=== PATIENT | male | born 1950 | race Hispanic/Latino ===

== ENCOUNTER 2018-06-03 14:36 | Inpatient (IN) | payer MEDICAID, SELFPAY ==
[~2018-06-03 14:36] MED LIST: Heparin 10,000 UNITS/ 10 ML VIAL ONE; Iopamidol 370 76% 100 ML VIAL ONE; Iopamidol 370 76% 50 ML VIAL FS ONE
[2018-06-03 15:07] LABS: #Monocytes 0.3 thou/uL (0.11-0.59); #Neutrophils 11.8 thou/uL (1.40-6.50); %Basophils 0.1 % (0.0-1.0); %Eosinophils 0.2 % (0.0-10.0); %Lymphocytes 7.6 % (21.0-51.0); %Monocytes 2.1 % (0.0-10.0); Hemoglobin 16.6 g/dL (14.0-18.0); Mean Corpuscular HGB CONC 34.8 g/dL (32.0-36.0); Mean Corpuscular Hemoglobin 31.6 pg (27.0-31.0); Mean Corpuscular Volume 90.8 fL (78.0-98.0); Mean Platelet Volume 8.1 fL (7.4-10.4); Platelet Count 228 thou/uL (130-400); RBC Distribution Width 11.3 % (11.5-14.5); Red Blood Cell (RBC) Count 5.26 mill/uL (4.70-6.10); White Blood Cell (WBC) Count 13.1 thou/uL (4.8-10.8)
[2018-06-03 15:30] LABS: ALT (SGPT) 24 U/L (8-55); AST (SGOT) 85 U/L (5-34); Albumin 4.7 g/dL (3.4-4.8); Alkaline Phosphatase 120 U/L (40-150); Anion Gap 19 mmol/L (10-20); BUN (Urea Nitrogen) 10 mg/dL (8.4-25.7); Bilirubin, Total 0.6 mg/dL (0.2-1.2); CK (CPK) 1361 U/L (30-200); Calc. Creatinine Clearance 0 mL/min (70-130); Calcium 9.8 mg/dL (7.8-10.44); Carbon Dioxide 22 mmol/L (23-31); Chloride 97 mmol/L (98-107); Estimated GFR-MDRD 77; Globulin 3.4 g/dL (2.4-3.5); Glucose 359 mg/dL (80-115); Lipase Less than 4 U/L (8-78); Potassium 4.2 mmol/L (3.5-5.1); Protein, Total 8.1 g/dL (5.8-8.1); Sodium 134 mmol/L (136-145)
[2018-06-03] MEDS ORDERED: Nitroglycerin 2% Ointment 1 INCH/1 GM Packet ONE (15:30)
[2018-06-03] MEDS ORDERED: Heparin 1,000 UNITS/ML VIAL ONE (15:35)
[2018-06-03 15:39] LABS: PTT 25.8 SEC (22.9-36.1); Prothrombin Time 13.2 SEC (12.0-14.7)
[2018-06-03 15:39] LABS: CKMB 84.8 ng/mL (0-6.6); Troponin I 14.239 ng/mL (< 0.028)
[2018-06-03] MEDS ORDERED: Lidocaine 1% (PF) 30 ML VIAL ONE (15:44)
--- NOTE | 2018-06-03 16:07 | RAD ---
UPRIGHT PORTABLE CHEST 1 VIEW: Date: 06/03/18 HISTORY: 67-year-old male with history of chest pain. FINDINGS: Heart size is within normal limits. The lungs are clear. Mild biapical pleural thickening. IMPRESSION: No acute intrathoracic disease. POS: C
[2018-06-03] MEDS ORDERED: Heparin 10,000 UNITS/1 ML VIAL ONE (16:10)
[2018-06-03] MEDS ORDERED: Atropine Sulfate 1 mg/1 ml Vial ONE (16:21)
[2018-06-03] MEDS ORDERED: DOPamine 400 MG/D5W 250 ML 0 ML ONE (16:22)
[2018-06-03] MEDS ORDERED: Nitroglycerin 100MG/250ML BOT 250 ML ONE (17:11)
[2018-06-03] MEDS ORDERED: Adenosine 6 MG/2 ML VIAL ONE (17:11)
[2018-06-03] MEDS ORDERED: TICAGRELOR 90 MG TABLET PO SCH (17:46)
[2018-06-03] MEDS ORDERED: Nitroglycerin 0.4 MG TAB (25 Tab Bottle) SL PRN (17:46)
[2018-06-03] MEDS ORDERED: Morphine 4 MG/ML Carpuject SLOW IVP PRN (17:46)
[2018-06-03] MEDS ORDERED: cloNIDine 0.1 MG TAB PO PRN (17:46)
[2018-06-03] MEDS ORDERED: Acetaminophen/Codeine 30-300mg Tablet PO PRN ×2 (17:46)
[2018-06-03] MEDS ORDERED: Zolpidem Tartrate 5 MG TAB PO PRN (17:46)
[2018-06-03] MEDS ORDERED: Mag-Al 1200 mg/1200 mg/30 ML UDCUP PO PRN (17:46)
[2018-06-03] MEDS ORDERED: Milk Of Magnesia 30 ML UDCUP PO PRN (17:46)
[2018-06-03] MEDS ORDERED: Heparin 25,000 units/D5W 500 ML IV SCH (18:00)
[2018-06-03] MEDS ORDERED: Morphine 4 MG/ML VIAL ONE (18:08)
--- NOTE | 2018-06-03 19:59 | HP ---
DATE OF ADMISSION: 06/03/2018 The patient is at this time being seen in the emergency room. HISTORY OF PRESENT ILLNESS: Very pleasant 67-year-old gentleman, who has had no previous cardiac his tory [facility] after he has been experiencing chest pain pretty much all morning. It started this a.m., uncertain of what time. He was sent over here after an EKG showe d what appeared to be an acute anterior myocardial infarction. He continues to have chest pain, whic h he rates a 7/10. EKG still shows ST-segment elevation in the anterior leads. It appears he most l ikely have Q-waves, very small R-wave in a couple of leads, but appears that he may have suffered a m yocardial infarction earlier today and this is just evolving changes, but the patient continues to victor ve chest discomfort. PAST MEDICAL HISTORY: Significant for some type of neck cancer. He has had bilateral neck dissectio ns. He had radiation apparently in 01/2014 and actually has some menon on the chest, which appeared to be radiation menon for the markers. Otherwise, he has had no previous history that we are aware o f. SOCIAL HISTORY: He has smoked a pack a day for about 20 years. He is . He has no alcohol us e. He works doing part-time construction. FAMILY HISTORY: Noncontributory. ALLERGIES: None. MEDICATIONS: None prior to admission. He has been given aspirin and heparin. REVIEW OF SYSTEMS: According to what we can discern from the patient who speaks only Thai, that h is review of systems is unremarkable except what was noted in the history of present illness. PHYSICAL EXAMINATION: GENERAL: Reveals a well-developed, well-nourished, small-statured gentleman. VITAL SIGNS: Blood pressure 122/83, heart rate 65 and shows a sinus rhythm, respiratory rate about 1 8. HEENT: Shows the head to be normocephalic, atraumatic. He has previous surgical incisions and well healing on both necks after what appeared to be a neck dissection. Carotid pulses, I did not hear an y bruits. CHEST: Clear to auscultation without any rales, rhonchi, or wheezing. CARDIOVASCULAR: Reveals a regular rate and rhythm at this time with S1 and S2. No S3, S4 was noted. There were no significant murmurs, heaves, thrills, bruits, or rubs. ABDOMEN: Soft, flat, nontender. Positive bowel sounds are present. EXTREMITIES: Showed no clubbing, cyanosis, or edema. NEUROLOGIC: The patient appears to be fully intact. Has normal strength and tone. SKIN: Warm and dry. NEUROLOGIC: He appears to be unremarkable. EKG shows acute anterior myocardial infarction with evolving changes of what appears to be an anterio r CA. LABORATORY DATA: Hemoglobin is stable, but we do not have his chemistries or troponins back as of th is time, at the time of this dictation. IMPRESSION: Acute anterior myocardial infarction. The patient will be taken to the cardiac lab courier urgently. I have explained the procedure and the risks to him to include bleeding; infection; possi bility of myocardial infarction, CVA, renal insufficiency, allergic contrast reaction; and the possib ility of . As soon as the room is available, the patient will be taken to cardiac lab courier for evaluation to determine if he has severe coronary artery disease and if any additional health can be given to this patient such as intervention.
[2018-06-03 20:51] VITALS: BMI 23.3
[2018-06-03] MEDS: Atorvastatin Calcium 40 MG TAB PO SCH (20:56)
[2018-06-03] MEDS: Carvedilol 3.125 MG TAB PO SCH (20:56)
[2018-06-03] MEDS: TICAGRELOR 90 MG TABLET PO SCH (20:56)
[2018-06-03 21:53] LABS: Troponin I 142.564 ng/mL (< 0.028)
[2018-06-04 03:29] LABS: #Lymphocytes 0.8 thou/uL (1.20-3.40); #Monocytes 0.8 thou/uL (0.11-0.59); #Neutrophils 9.5 thou/uL (1.40-6.50); %Basophils 0.2 % (0.0-1.0); %Eosinophils 0.3 % (0.0-10.0); %Lymphocytes 7.3 % (21.0-51.0); %Monocytes 7.1 % (0.0-10.0); %Neutrophils 85.1 % (42.0-75.0); Hemoglobin 15.7 g/dL (14.0-18.0); Mean Corpuscular HGB CONC 35.7 g/dL (32.0-36.0); Mean Corpuscular Hemoglobin 32.6 pg (27.0-31.0); Mean Corpuscular Volume 91.4 fL (78.0-98.0); Mean Platelet Volume 7.9 fL (7.4-10.4); Platelet Count 210 thou/uL (130-400); RBC Distribution Width 11.3 % (11.5-14.5); Red Blood Cell (RBC) Count 4.82 mill/uL (4.70-6.10); White Blood Cell (WBC) Count 11.1 thou/uL (4.8-10.8)
[2018-06-04 03:51] LABS: ALT (SGPT) 38 U/L (8-55); AST (SGOT) 209 U/L (5-34); Alkaline Phosphatase 91 U/L (40-150); Anion Gap 16 mmol/L (10-20); BUN (Urea Nitrogen) 11 mg/dL (8.4-25.7); Bilirubin, Total 0.8 mg/dL (0.2-1.2); Calc. Creatinine Clearance 86 mL/min (70-130); Calcium 8.9 mg/dL (7.8-10.44); Carbon Dioxide 22 mmol/L (23-31); Chloride 99 mmol/L (98-107); Estimated GFR-MDRD Greater than 90; Globulin 2.9 g/dL (2.4-3.5); Glucose 315 mg/dL (80-115); Potassium 3.6 mmol/L (3.5-5.1); Protein, Total 6.9 g/dL (5.8-8.1); Sodium 133 mmol/L (136-145)
[2018-06-04] MEDS ORDERED: Heparin 10,000 UNITS/ 10 ML VIAL SLOW IVP SCH (04:00)
[2018-06-04] MEDS ORDERED: Dextrose 5% in Water 1,000 ML IV PRN (07:49)
[2018-06-04] MEDS ORDERED: Dextrose 50% Abboject 50 ML SYRINGE SLOW IVP PRN (07:49)
[2018-06-04] MEDS ORDERED: Insulin Regular 300 UNITS/3 ML VIAL SC PRN (07:49)
[2018-06-04 08:48] LABS: Hemoglobin A1c 12.5 % (4.0-6.0)
[2018-06-04] MEDS ORDERED: Insulin Glargine 20 UNITS in Pre-Filled Syringe 1 EACH SC SCH (09:00)
[2018-06-04] MEDS ORDERED: Prevnar 13-Val Conj/PF 0.5 ML SYRINGE IM ONE (09:00)
--- NOTE | 2018-06-04 09:50 | CON ---
DATE OF CONSULTATION: 06/04/2018 REASON FOR CONSULTATION: ICU protocol. HISTORY OF PRESENT ILLNESS: This is a 67-year-old male who presented yesterday with chest pain. He was found to have a large anterior SC. He was taken to the [facility] and underwent stenting. He is n ow chest pain free. He is in the ICU. He has a sheath in place. He has been noted to be severely h yperglycemic. He tells me that he is diabetic, but has not been taking medications for that. PAST MEDICAL HISTORY: 1. Head and neck cancer. 2. Diabetes mellitus. PAST SURGICAL HISTORY: He has had some kind of radical neck dissection. SOCIAL HISTORY: He smoked a pack a day for 20 years. No longer smokes. He is from [place]. He does part-time construction here. FAMILY MEDICAL HISTORY: Unremarkable. ALLERGIES: None. MEDICATIONS PRIOR TO ADMISSION: None. REVIEW OF SYSTEMS: Twelve point review of systems otherwise negative. PHYSICAL EXAMINATION: VITAL SIGNS: Temperature 98.2, pulse 93, blood pressure 116/77, O2 sat 95%. HEENT: Pupils react. Sclerae anicteric. Oropharynx clear. NECK: Severe muscle wasting. He has no carotid bruits, no JVD. LUNGS: Clear without wheezing or rhonchi. CARDIAC: S1, S2 regular without audible murmur. ABDOMEN: Soft, nontender. Nonpalpable liver or spleen. EXTREMITIES: No clubbing, cyanosis, or edema. He has decreased pulses in his feet, but no discolora tion. LABORATORY DATA: Sodium 133, potassium 3.6, chloride 99, CO2 of 22, BUN 11, creatinine 0.7, glucose 315, AST 209, ALT 38. Troponins 85, but was initially 142, albumin 4.0, white blood cell count 11.1, hematocrit 44, platelet count 210. X-RAY FINDINGS: His chest x-ray shows slightly increased heart size, no obvious mass, effusion or in filtrate. ASSESSMENT: 1. Acute myocardial infarction. 2. Diabetes out of control. PLAN: 1. Check hemoglobin A1c. 2. Add long-acting insulin along with sliding scale. 3. He will likely need hospitalist involvement to develop a treatment for his hyperglycemia prior to discharge.
[2018-06-04] MEDS: Lisinopril 2.5 MG TAB PO SCH (11:15)
[2018-06-04] MEDS: Famotidine 20 MG TAB PO SCH ×2 (11:16→22:15)
[2018-06-04] MEDS: Insulin Regular 300 UNITS/3 ML VIAL SC PRN ×2 (11:49→16:47)
[2018-06-04] MEDS: TICAGRELOR 90 MG TABLET PO SCH ×2 (11:56→22:16)
--- NOTE | 2018-06-04 12:23 | PDOC.CTH ---
Cardiology Progress Note - Subjective Pt. seen and eval. s/p large anterkior HI yesterday with ptca/stent to the occluded LAD. He denies chest pain. No symptoms of CHF. BP stable. - Objective Vital Signs Temp Pulse BP Pulse Ox 06/04/18 11:15 82 123/73 06/04/18 08:00 98.3 F 97 Weight 136 lb 0.403 oz 06/03/18 06/04/18 06/05/18 06:59 06:59 06:59 Intake Total 463 360 Output Total 1025 350 Balance -562 10 - Physical Examination General/Neuro: alert & oriented x3 Neck: other: (bilat. neck dissections in the past. Well healed but difficult to palpate carotid pulse but they are present bilat.) Lungs: CTA Heart: RRR Abdomen: no HSM, NT/ND - Telemetry Telemetry Rhythm: NSR - Labs Result Diagrams: 06/04/18 03:13 06/04/18 03:13 Troponin/CKMB CK-MB (CK-2) 84.8 ng/mL (0-6.6) H* 06/03/18 14:54 Troponin I 85.630 ng/mL (< 0.028) H* 06/04/18 03:13 - Assessment/Plan 1. CAD.s/p large anterior HI. severe 3 vessel dz. S/P ptca/ stent to the LAD. He will need further PTCA/stents to the RCA and L-Circ. prior to d/c. Plan for early next week. 2. DM. Pt. stopped taking his medications.Presently on insulin.Will consult hospital service to assist with management. 3. Dyslipidemia. Check FLP. 4. Hx. of tobacco abuse. He did smoke in the past but stopped 5 years ago after his neck cancer. Review of Systems - Review of Systems Constitutional: reports: no symptoms reported EENTM: reports: no symptoms reported Respiratory: reports: no symptoms reported Cardiac (ROS): reports: no symptoms reported ABD/GI: reports: no symptoms reported : reports: no symptoms reported Musculoskeletal: reports: no symptoms reported Neurological: reports: no symptoms reported
[2018-06-04] MEDS: Carvedilol 3.125 MG TAB PO SCH ×2 (13:04→22:15)
[2018-06-04] MEDS: Atorvastatin Calcium 40 MG TAB PO SCH (22:15)
[2018-06-04] MEDS: Insulin Glargine 20 UNITS in Pre-Filled Syringe 1 EACH SC SCH (22:15)
--- NOTE | 2018-06-05 02:12 | CON ---
DATE OF CONSULTATION: 06/04/2018 CONSULTING PHYSICIAN: Dr. Saenz. REASON FOR CONSULTATION: Medical management. HISTORY OF PRESENT ILLNESS: This patient is a 67-year-old male who presented to the hospital after a bout 12 hours of significant chest pain. The patient had evidence of anterior ischemia on his EKG an d was diagnosed with STEMI. He was taken to the color laboratory technician where he was found to have multivessel dise ase with large anterior occlusion. Patient had angioplasty and drug-eluting stent placed. He has pe rsistent RCA disease with 95% and left circulatory 95%. His ejection fraction was 40%-45%. Subseque ntly, the patient's troponin has risen to a peak of 142.5. Subsequently, patient has been pain free while undergoing this. The patient has diabetes mellitus and has poor control. The patient has not been taking any medications for diabetes prior to his admission. He has not really paid any attentio n to it. Overall, clinically his hemoglobin A1c was 12.5 indicating very poor control. He is curren tly on aggressive sliding scale insulin and continues to have blood sugars over 250. PAST MEDICAL HISTORY: Notable for the above-mentioned diabetes. Apparently, the patient has some hi story of anxiety for which he takes Klonopin as well. He also has a history of some type of head and neck cancer requiring non-radical neck dissection with subsequent radiation therapy. FAMILY HISTORY: Notable for mother with diabetes and a sister with diabetes who acquired bilateral l ower extremity amputations. SOCIAL HISTORY: Patient was a smoker, but quit smoking and he was diagnosed with pelvic cancer. ALLERGIES: None. MEDICATION: Patient was on p.r.n. Klonopin. PHYSICAL EXAMINATION: VITAL SIGNS: Temperature is 98.7, pulse 82, respirations 16, O2 sat 98% on 2 liters nasal cannula, B P 119/76. GENERAL APPEARANCE: Age appropriate male in no distress. He is awake, alert, oriented, pleasant and cooperative. HEENT: PERRL. No OP lesions. He has surgical changes in the neck which are well healed. HEART: Regular rate and rhythm without murmurs, gallops or rubs. LUNGS: Clear to auscultation bilaterally with good chest wall expansion and good air exchange. ABDOMEN: Soft, nontender, nondistended, positive bowel sounds. No hepatosplenomegaly. EXTREMITIES: Warm and dry without edema. LABORATORY DATA: White count 11.1, hemoglobin 15.7, platelets 210. Sodium 133, potassium 3.6, chlor janay 99, CO2 of 22, BUN 11, creatinine 0.74, glucose 315, 279, 277. A1c 12.5. Most recent troponin d own to 85.6. IMPRESSION AND PLAN: 1. Severe coronary artery disease with multi-vessel involvement. The patient has angioplasty and st ent to his LAD and has 2 vessels remaining that will need to be addressed prior to his discharge. Cu rrently, the patient remains on Coreg, Zestril, Lipitor, aspirin and Brilinta. Refer to Cardiology. 2. Diabetes mellitus. Patient will need to have some additional long-acting insulin and continue wi th the aggressive sliding scale. We will add higher morning dose of insulin Glargine. This patient will likely benefit from an oral regimen given the fact he is highly mobile and unsettled and frequen tly changes where he lives between and [place]. He may be a good candidate for metformin; however, will need to get past all of the cardiac interventions with contrast before starting that. We will continue to follow.
[2018-06-05 04:52] LABS: Anion Gap 11 mmol/L (10-20); BUN (Urea Nitrogen) 14 mg/dL (8.4-25.7); Calc. Creatinine Clearance 83 mL/min (70-130); Calcium 8.8 mg/dL (7.8-10.44); Carbon Dioxide 26 mmol/L (23-31); Chloride 99 mmol/L (98-107); Estimated GFR-MDRD Greater than 90; Glucose 186 mg/dL (80-115); Sodium 133 mmol/L (136-145)
[2018-06-05] MEDS: Insulin Regular 300 UNITS/3 ML VIAL SC PRN ×2 (06:06→12:46)
[2018-06-05] MEDS ORDERED: Potassium Chloride 20 MEQ TAB PO SCH (07:45)
[2018-06-05] MEDS ORDERED: Insulin Glargine 30 UNITS in Pre-Filled Syringe 1 EACH SC SCH (09:00)
[2018-06-05] MEDS: Carvedilol 3.125 MG TAB PO SCH ×2 (09:11→20:57)
[2018-06-05] MEDS: Famotidine 20 MG TAB PO SCH ×2 (09:11→20:57)
[2018-06-05] MEDS: Lisinopril 2.5 MG TAB PO SCH (09:11)
--- NOTE | 2018-06-05 09:15 | PRG ---
DATE OF SERVICE: 06/05/2018 SUBJECTIVE: The patient is feeling well, has no complaints. OBJECTIVE: VITAL SIGNS: Temperature 98.2, pulse 83, respirations 12, O2 sat 92%, blood pressure 94/70. HEENT: Unremarkable. NECK: No JVD. CHEST: Clear without wheezing. CARDIAC: S1 and S2 regular. ABDOMEN: Soft. EXTREMITIES: No edema. LABORATORY DATA: Sodium 133, potassium 3.0, chloride 99, CO2 of 26, BUN 14, creatinine 0.7, glucose 186. ASSESSMENT: 1. Status post myocardial infarction. 2. Diabetes out of control -- blood sugars better since beginning Lantus yesterday. PLAN: The patient can be transferred out to the telemetry floor. No further pulmonary recommendatio ns. We will sign off. Please recall if further assistance needed.
[2018-06-05] MEDS: TICAGRELOR 90 MG TABLET PO SCH ×2 (09:17→20:57)
--- NOTE | 2018-06-05 12:16 | PDOC.CTH ---
<Magali Irizarry - Last Filed: 06/05/18 12:14> Cardiology Progress Note - Subjective The pt seen and examined. No overnight events. No cardiac complaints. - Objective Vital Signs Temp Pulse Resp BP BP Pulse Ox 06/05/18 11:52 96.8 F L 80 19 102/74 95 06/05/18 09:11 93 106/75 06/05/18 08:00 92 L 06/05/18 07:30 98.2 F 83 12 94/70 92 L 06/05/18 04:00 99.1 F 82 16 100/61 94 L Weight 137 lb 12.8 oz 06/04/18 06/05/18 06/06/18 06:59 06:59 06:59 Intake Total 463 1920 Output Total 1025 1225 Balance -562 695 - Physical Examination General/Neuro: alert & oriented x3 Neck: no JVD present Lungs: CTA Heart: RRR Abdomen: soft Extremities: other: (No edema) - Telemetry Telemetry Rhythm: SR - Labs Result Diagrams: 06/04/18 03:13 06/05/18 03:34 Troponin/CKMB CK-MB (CK-2) 84.8 ng/mL (0-6.6) H* 06/03/18 14:54 Troponin I 85.630 ng/mL (< 0.028) H* 06/04/18 03:13 - Assessment/Plan 1. CAD with s/p large anterior PR, severe 3 vessel dz - S/P ptca/stent to the LAD on 06/04/18. On Coreg 3.125mg BID, Lisinopril 2.5mg qd, ASA 81mg qd, and Brilinta 90mg BID. Need further PTCA/stents to the RCA and L-Circ. prior to d/ c. Plan for early next week. 2. DM - HgbA1c on 06/04/18 was > 12. Non-complaint. Presently on insulin, which managed by PCP 3. Dyslipidemia - on Lipitor. 4. Hx. of tobacco abuse, quit in 2013 - Smoking cessation education given to the pt. MAR reviewed * Plan for further PTCA/stents to the RCA and L-Circ possible early next week. Cont. Brilinta Review of Systems - Review of Systems Constitutional: reports: no symptoms reported EENTM: reports: no symptoms reported Respiratory: reports: no symptoms reported Cardiac (ROS): reports: no symptoms reported ABD/GI: reports: no symptoms reported : reports: no symptoms reported Musculoskeletal: reports: no symptoms reported Skin: reports: no symptoms reported Neurological: reports: no symptoms reported <Leigh Ann Saenzan - Last Filed: 06/05/18 16:39> Cardiology Progress Note - Objective Vital Signs Temp Pulse Pulse Pulse Resp BP BP 06/05/18 15:51 97.8 F 81 18 06/05/18 11:52 96.8 F L 80 19 06/05/18 10:42 89 91 102/66 06/05/18 09:11 93 106/75 06/05/18 08:00 06/05/18 07:30 98.2 F 83 12 BP BP Pulse Ox 06/05/18 15:51 106/77 95 06/05/18 11:52 102/74 95 06/05/18 10:42 102/74 06/05/18 09:11 06/05/18 08:00 92 L 06/05/18 07:30 94/70 92 L Weight 137 lb 12.8 oz 06/04/18 06/05/18 06/06/18 06:59 06:59 06:59 Intake Total 463 1920 Output Total 1025 1225 Balance -562 695 - Labs Result Diagrams: 06/04/18 03:13 06/05/18 03:34 Troponin/CKMB CK-MB (CK-2) 84.8 ng/mL (0-6.6) H* 06/03/18 14:54 Troponin I 85.630 ng/mL (< 0.028) H* 06/04/18 03:13 - Assessment/Plan Pt. doing very well post PR. I had planned for further PTCA/stent to the RCA and L-circ. next week but he is doing better than anticipated and I will schedule him for cath and intervention tomorrow afternoon. I agree with the A/P by the [facility] otherwise. Chest clear. RRR.
--- NOTE | 2018-06-05 14:41 | PDOC.PN ---
- Subjective Encounter Start Date: 06/05/18 Encounter Start Time: 11:40 Doing very well. No new complaints. - Objective Resuscitation Status: Resuscitation Status FULL:Full Resuscitation Vital Signs & Weight: Vital Signs (12 hours) Temp Pulse Resp BP BP Pulse Ox 06/05/18 11:52 96.8 F L 80 19 102/74 95 06/05/18 09:11 93 106/75 06/05/18 08:00 92 L 06/05/18 07:30 98.2 F 83 12 94/70 92 L 06/05/18 04:00 99.1 F 82 16 100/61 94 L Weight Weight 137 lb 12.8 oz Most Recent Monitor Data Heart Rate from ECG 76 NIBP 107/78 NIBP BP-Mean 91 Respiration from ECG 23 SpO2 97 I&O: 06/04/18 06/05/18 06/06/18 06:59 06:59 06:59 Intake Total 463 1920 Output Total 1025 1225 Balance -562 695 Result Diagrams: 06/04/18 03:13 06/05/18 03:34 Additional Labs: Accuchecks 06/05/18 06/05/18 06/04/18 12:39 05:58 20:17 POC Glucose 288 H 177 H 200 H 06/04/18 16:44 POC Glucose 246 H Phys Exam - Physical Examination Constitutional: NAD Respiratory: no wheezing, no rales, no rhonchi, clear to auscultation bilateral Cardiovascular: RRR, no significant murmur, no rub Gastrointestinal: soft, non-tender, no distention, positive bowel sounds Musculoskeletal: no edema Neurological: non-focal Psychiatric: normal affect Dx/Plan (1) STEMI (ST elevation myocardial infarction) Status: Acute (2) CAD (coronary artery disease) Code(s): I25.10 - ATHSCL HEART DISEASE OF [place] CORONARY ARTERY W/O ANG PCTRS Status: Acute Comment: S/P PCI with drug eluting stent to LAD. Persistent high grade stenosis of the Circ and RCA. Will have those addressed prior to discharge. (3) Diabetes mellitus Code(s): E11.9 - TYPE 2 DIABETES MELLITUS WITHOUT COMPLICATIONS Status: Acute Comment: Doing better with long-acting and short acting insulin combination. Would likely be a good candidate for metformin after the interventions are complete and he will receive no additional contrast. - Plan * .
[2018-06-05] MEDS ORDERED: Communication Order-Pharmacy FS SCH (16:45)
[2018-06-05] MEDS: Atorvastatin Calcium 40 MG TAB PO SCH (20:57)
[2018-06-05] MEDS: Insulin Glargine 20 UNITS in Pre-Filled Syringe 1 EACH SC SCH (21:00)
[2018-06-06] MEDS: Famotidine 20 MG TAB PO SCH ×2 (06:38→20:27)
[2018-06-06] MEDS: TICAGRELOR 90 MG TABLET PO SCH ×2 (06:39→20:29)
[2018-06-06] MEDS: Lisinopril 2.5 MG TAB PO SCH (08:36)
[2018-06-06] MEDS: Carvedilol 3.125 MG TAB PO SCH ×2 (08:36→20:27)
[2018-06-06] MEDS ORDERED: Iopamidol 370 76% 100 ML VIAL ONE (10:24)
[2018-06-06] MEDS ORDERED: Iopamidol 370 76% 50 ML VIAL FS ONE (10:24)
[2018-06-06] MEDS ORDERED: Lidocaine 1% (PF) 30 ML VIAL ONE (12:00)
[2018-06-06] MEDS ORDERED: Heparin 10,000 UNITS/1 ML VIAL ONE (13:54)
[2018-06-06] MEDS ORDERED: Nitroglycerin 100MG/250ML BOT 250 ML ONE (13:55)
--- NOTE | 2018-06-06 15:07 | PDOC.CTH ---
<Leigh Ann Saenz - Last Filed: 06/06/18 19:22> Cardiology Progress Note - Objective Vital Signs Temp Pulse Pulse Pulse Resp BP BP 06/06/18 18:00 97.4 F L 73 16 06/06/18 10:48 97.4 F L 81 16 06/06/18 10:42 80 92 111/76 99/76 06/06/18 08:36 80 06/06/18 08:00 06/06/18 07:27 98.2 F 70 16 BP BP Pulse Ox Pulse Ox Pulse Ox 06/06/18 18:00 103/71 95 06/06/18 10:48 104/77 97 06/06/18 10:42 98 94 L 06/06/18 08:36 06/06/18 08:00 96 06/06/18 07:27 95/70 96 Weight 137 lb 12.8 oz 06/05/18 06/06/18 06/07/18 06:59 06:59 06:59 Intake Total 1920 600 Output Total 1225 300 Balance 695 600 -300 - Labs Result Diagrams: 06/04/18 03:13 06/05/18 03:34 Troponin/CKMB CK-MB (CK-2) 84.8 ng/mL (0-6.6) H* 06/03/18 14:54 Troponin I 85.630 ng/mL (< 0.028) H* 06/04/18 03:13 - Assessment/Plan Pt. seen and eval. by me. S/P stents to RCA and L-circ. today as a stged procedure after an anterior MT and stent placement to the LAD . The LAD stent was widely patent today.His Rx were written and if he is stable can be d/c'd tomorrow. <Magali Irizarry - Last Filed: 06/09/18 07:42> Cardiology Progress Note - Subjective The pt seen and examined. No overnight events. No cardiac complaints this AM. - Objective Vital Signs Temp Pulse Resp BP Pulse Ox 06/06/18 10:48 97.4 F L 81 16 104/77 97 06/06/18 08:36 80 06/06/18 08:00 96 06/06/18 07:27 98.2 F 70 16 95/70 96 06/06/18 03:51 98.6 F 76 16 94/68 93 L Weight 137 lb 12.8 oz 06/05/18 06/06/18 06/07/18 06:59 06:59 06:59 Intake Total 1920 600 Output Total 1225 Balance 695 600 - Physical Examination General/Neuro: alert & oriented x3 Neck: no JVD present Lungs: CTA Heart: RRR Abdomen: soft Extremities: other: (No edema) - Telemetry Telemetry Rhythm: SR - Labs Result Diagrams: 06/07/18 04:27 06/07/18 04:27 Troponin/CKMB CK-MB (CK-2) 84.8 ng/mL (0-6.6) H* 06/03/18 14:54 Troponin I 85.630 ng/mL (< 0.028) H* 06/04/18 03:13 - Assessment/Plan 1. CAD with s/p large anterior MT, severe 3 vessel dz - S/P ptca/stent to the LAD on 06/04/18. S/p PTCA/stent to RCA and Lt Cx. On Coreg 3.125mg BID, Lisinopril 2.5mg qd, ASA 81mg qd, and Brilinta 90mg BID. Must be on antiplatelet with ASA for at least 1 year. 2. DM - HgbA1c on 06/04/18 was > 12. Non-complaint. Presently on insulin, which managed by PCP 3. Dyslipidemia - on Lipitor. 4. Hx. of tobacco abuse, quit in 2013 - Smoking cessation education given to the pt. MAR reviewed * If the pt is stable overnight, the pt can be d/courtney home tomorrow AM. The pt must be on antiplatelet with ASA for at least 1 year. * The 30-day sample of Brilinta will be given to the pt at discharge. * The pt needs to find PCP for DM management. * The pt will f/u with Dr Saenz' office within 2-4 wks. <addendum> * 30 day sample of Brilinta was given to the pt today. Instructed to finish the sample and must f/u with the office for further the prescription. Review of Systems - Review of Systems Constitutional: reports: no symptoms reported EENTM: reports: no symptoms reported Respiratory: reports: no symptoms reported Cardiac (ROS): reports: no symptoms reported ABD/GI: reports: no symptoms reported : reports: no symptoms reported Musculoskeletal: reports: no symptoms reported
--- NOTE | 2018-06-06 15:16 | PDOC.PN ---
- Subjective Encounter Start Date: 06/06/18 Encounter Start Time: 14:00 Subjective: no chest pain or sob - Objective Resuscitation Status: Resuscitation Status FULL:Full Resuscitation MAR Reviewed: Yes Vital Signs & Weight: Vital Signs (12 hours) Temp Pulse Resp BP Pulse Ox 06/06/18 10:48 97.4 F L 81 16 104/77 97 06/06/18 08:36 80 06/06/18 08:00 96 06/06/18 07:27 98.2 F 70 16 95/70 96 06/06/18 03:51 98.6 F 76 16 94/68 93 L Weight Weight 137 lb 12.8 oz Most Recent Monitor Data Heart Rate from ECG 76 NIBP 107/78 NIBP BP-Mean 91 Respiration from ECG 23 SpO2 97 I&O: 06/05/18 06/06/18 06/07/18 06:59 06:59 06:59 Intake Total 1920 600 Output Total 1225 Balance 695 600 Result Diagrams: 06/04/18 03:13 06/05/18 03:34 Additional Labs: Accuchecks 06/06/18 06/06/18 06/05/18 10:31 05:38 20:05 POC Glucose 157 H 94 215 H 06/05/18 06/05/18 16:47 16:34 POC Glucose 117 H 123 H Phys Exam - Physical Examination HEENT: PERRLA, moist MMs Neck: no JVD, supple Respiratory: no wheezing, no rales Cardiovascular: RRR, no significant murmur Gastrointestinal: soft, non-tender, positive bowel sounds Musculoskeletal: no edema, pulses present Neurological: non-focal, moves all 4 limbs Psychiatric: normal affect, A&O x 3 Dx/Plan (1) STEMI (ST elevation myocardial infarction) Status: Acute Comment: s/p stent to LAD, RCA and circumflex (2) CAD (coronary artery disease) Code(s): I25.10 - ATHSCL HEART DISEASE OF [place] CORONARY ARTERY W/O ANG PCTRS Status: Acute Qualifiers: Coronary Disease-Associated Artery/Lesion type: [place] artery [place] vs. transplanted heart: [place] heart (3) Diabetes mellitus Code(s): E11.9 - TYPE 2 DIABETES MELLITUS WITHOUT COMPLICATIONS Status: Chronic Qualifiers: Diabetes mellitus type: type 2 Diabetes mellitus manager terminal insulin use: without shelter use Diabetes mellitus complication status: with unspecified complications Qualified Code(s): E11.8 - Type 2 diabetes mellitus with unspecified complications (4) Dyslipidemia Code(s): E78.5 - HYPERLIPIDEMIA, UNSPECIFIED Status: Acute (5) Tobacco abuse Code(s): Z72.0 - TOBACCO USE Status: Chronic - Plan is on asp, lipitor, coreg, lisinopril -: brilinta for 1 yr -: lantus held for cath today -: will switch him to small dose of glypizide for compliance -: hemostable * . Review of Systems - Medications/Allergies Allergies/Adverse Reactions: Allergies Allergy/AdvReac Type Severity Reaction Status Date / Time No Known Drug Allergies Allergy Verified 06/04/18 01:51 Medications: Current Medications Acetaminophen/Codeine Phosphate (Tylenol #3) 1 tab PO Q4H PRN PRN Reason: PAIN (1-3) Acetaminophen/Codeine Phosphate (Tylenol #3) 2 tab PO Q4H PRN PRN Reason: PAIN (4-6) Al Hydroxide/Mg Hydroxide (Maalox) 30 ml PO Q3H PRN PRN Reason: Heartburn or Indigestion Aspirin (Aspirin Chewable) 81 mg PO DAILY [facility] Last Admin: 06/06/18 06:39 Dose: 81 mg Atorvastatin Calcium (Lipitor) 40 mg PO HS [facility] Last Admin: 06/05/18 20:57 Dose: 40 mg Carvedilol (Coreg) 3.125 mg PO BID [facility] Last Admin: 06/06/18 08:36 Dose: 3.125 mg Clonidine (Catapres) 0.1 mg PO Q2H PRN PRN Reason: SBP GREATER THAN 160 Dextrose/Water (Dextrose 50%) 25 gm SLOW IVP PRN PRN PRN Reason: Hypoglycemia Famotidine (Pepcid) 20 mg PO BID [facility] Last Admin: 06/06/18 06:38 Dose: 20 mg Glucagon (Glucagon) 1 mg IM PRN PRN PRN Reason: Hypoglycemia Dextrose/Water (D5w) 1,000 mls @ 0 mls/hr IV .Q0M PRN PRN Reason: Hypoglycemia Lisinopril (Zestril) 2.5 mg PO DAILY [facility] Last Admin: 06/06/18 08:36 Dose: 2.5 mg Magnesium Hydroxide (Milk Of Magnesium) 30 ml PO Q12H PRN PRN Reason: Constipation Miscellaneous Information (Communication Order-Pharmacy) 0 each FS ONE [facility] Stop: 06/06/18 17:00 Morphine Sulfate (Morphine) 2 mg SLOW IVP Q4H PRN PRN Reason: CHEST PAIN (4-6) Morphine Sulfate (Morphine) 4 mg SLOW IVP Q4H PRN PRN Reason: CHEST PAIN (7-10) Nitroglycerin (Nitrostat) 0.4 mg SL Q5MIN PRN PRN Reason: Chest Pain Sodium Chloride (Flush - Normal Saline) 10 ml IVF Q12HR [facility] Last Admin: 06/06/18 08:37 Dose: 10 ml Ticagrelor (Brilinta) 90 mg PO BID [facility] Last Admin: 06/06/18 06:39 Dose: 90 mg Zolpidem Tartrate (Ambien) 5 mg PO HS PRN PRN Reason: Insomnia
[2018-06-06] MEDS ORDERED: Insulin Regular 300 UNITS/3 ML VIAL SC PRN ×2 (19:50)
[2018-06-06] MEDS: Atorvastatin Calcium 40 MG TAB PO SCH (20:27)
[2018-06-06] MEDS: Sodium Chloride 0.9% 1,000 ML IV SCH (20:28)
[2018-06-07 05:10] LABS: #Eosinphils 0.2 thou/uL (0.0-0.7); #Monocytes 0.7 thou/uL (0.11-0.59); %Basophils 0.3 % (0.0-1.0); %Eosinophils 2.3 % (0.0-10.0); %Monocytes 10.4 % (0.0-10.0); %Neutrophils 73.1 % (42.0-75.0); Hemoglobin 13.4 g/dL (14.0-18.0); Mean Corpuscular HGB CONC 33.6 g/dL (32.0-36.0); Mean Corpuscular Hemoglobin 31.2 pg (27.0-31.0); Mean Platelet Volume 7.9 fL (7.4-10.4); Platelet Count 207 thou/uL (130-400); RBC Distribution Width 11.2 % (11.5-14.5); White Blood Cell (WBC) Count 6.8 thou/uL (4.8-10.8)
[2018-06-07 05:18] LABS: ALT (SGPT) 19 U/L (8-55); AST (SGOT) 34 U/L (5-34); Albumin 3.3 g/dL (3.4-4.8); Alkaline Phosphatase 92 U/L (40-150); Anion Gap 10 mmol/L (10-20); BUN (Urea Nitrogen) 13 mg/dL (8.4-25.7); Bilirubin, Total 1.1 mg/dL (0.2-1.2); Calc. Creatinine Clearance 83 mL/min (70-130); Calcium 8.6 mg/dL (7.8-10.44); Carbon Dioxide 28 mmol/L (23-31); Chloride 103 mmol/L (98-107); Estimated GFR-MDRD Greater than 90; Globulin 2.8 g/dL (2.4-3.5); Glucose 216 mg/dL (80-115); Potassium 3.8 mmol/L (3.5-5.1); Protein, Total 6.1 g/dL (5.8-8.1); Sodium 137 mmol/L (136-145)
[2018-06-07] MEDS ORDERED: Insulin Glargine 20 UNITS in Pre-Filled Syringe 1 EACH SC SCH (09:00)
[2018-06-07] MEDS: Lisinopril 2.5 MG TAB PO SCH (09:33)
[2018-06-07] MEDS: TICAGRELOR 90 MG TABLET PO SCH (09:33)
[2018-06-07] MEDS: Famotidine 20 MG TAB PO SCH (09:33)
[2018-06-07] MEDS: Sodium Chloride 0.9% 1,000 ML IV SCH (09:34)
[2018-06-07] MEDS: Carvedilol 3.125 MG TAB PO SCH (09:35)
[2018-06-07 10:05] VITALS: BP 102/66; TEMP 97.7
--- NOTE | 2018-06-07 10:34 | PDOC.CTH ---
Cardiology Progress Note - Subjective No complaints. Feels fine. No CP/SOB/MCNEILL. Tele stable. Walked entire [facility]. - Objective Vital Signs Temp Pulse Resp BP Pulse Ox 06/07/18 08:10 97.7 F 75 18 102/66 97 06/07/18 04:00 98.4 F 82 20 114/72 94 L Weight 140 lb 14.4 oz 06/06/18 06/07/18 06/08/18 06:59 06:59 06:59 Intake Total 600 770 Output Total 700 Balance 600 70 - Physical Examination General/Neuro: alert & oriented x3 Neck: no JVD present Lungs: CTA Heart: RRR Abdomen: NT/ND Extremities: other: (no edema) - Telemetry Telemetry Rhythm: SR - Labs Result Diagrams: 06/07/18 04:27 06/07/18 04:27 Troponin/CKMB CK-MB (CK-2) 84.8 ng/mL (0-6.6) H* 06/03/18 14:54 Troponin I 85.630 ng/mL (< 0.028) H* 06/04/18 03:13 - Assessment/Plan 1. s/p anterior STEMI 2. CAD - S/P PCI-LAD on 06/04/18. s/p PCI-RCA and LCx yesterday. On SMITH-Inh, bblocker, statin, ASA and Brilinta 2. DM - uncontrolled 3. mixed hyperlipidemia 4. Former smoker Overall doing well. Stressed need for compliance and DM mgmt by PCP. Ok for discharge and f/u in two weeks with Dr. Saenz.
--- NOTE | 2018-06-07 13:26 | EKG ---
Test Reason : CHEST PAIN Blood Pressure : / mmHG Vent. Rate : 065 BPM Atrial Rate : 065 BPM P-R Int : 148 ms QRS Dur : 090 ms QT Int : 436 ms P-R-T Axes : 049 -66 053 degrees QTc Int : 453 ms Normal sinus rhythm Possible Left atrial enlargement Left axis deviation Anteroseptal infarct , age undetermined Abnormal ECG ST elevation-LA activated Confirmed by ASHA MILIAN ([id number]), pictures editor MARY JO KIM ([id number]) on 06/07/2018 1:25:38 PM Referred By: Confirmed By:ASHA MILIAN
--- NOTE | 2018-06-07 13:28 | EKG ---
Test Reason : EMERGENCY EXAM Blood Pressure : / mmHG Vent. Rate : 061 BPM Atrial Rate : 061 BPM P-R Int : 156 ms QRS Dur : 090 ms QT Int : 454 ms P-R-T Axes : 045 -61 060 degrees QTc Int : 457 ms Normal sinus rhythm Possible Left atrial enlargement Left axis deviation Anteroseptal infarct , age undetermined Abnormal ECG ST- elevation-myocardial infarction activated Confirmed by ASHA MILIAN ([id number]), avid editor MARY JO KIM ([id number]) on 06/07/2018 1:28:10 PM Referred By: Confirmed By:ASHA MILIAN
--- NOTE | 2018-06-07 13:30 | PDOC.PN ---
- Subjective Encounter Start Date: 06/07/18 Encounter Start Time: 08:45 Subjective: no sob or chest pain -: feels good, is ambulating in room - Objective Resuscitation Status: Resuscitation Status FULL:Full Resuscitation MAR Reviewed: Yes Vital Signs & Weight: Vital Signs (12 hours) Temp Pulse Pulse Pulse Resp BP BP 06/07/18 08:58 73 75 102/66 106/68 06/07/18 08:10 97.7 F 75 18 06/07/18 04:00 98.4 F 82 20 BP Pulse Ox Pulse Ox Pulse Ox 06/07/18 08:58 98 96 06/07/18 08:10 102/66 97 06/07/18 04:00 114/72 94 L Weight Weight 140 lb 14.4 oz Most Recent Monitor Data Heart Rate from ECG 76 NIBP 107/78 NIBP BP-Mean 91 Respiration from ECG 23 SpO2 97 I&O: 06/06/18 06/07/18 06/08/18 06:59 06:59 06:59 Intake Total 600 770 Output Total 700 Balance 600 70 Result Diagrams: 06/07/18 04:27 06/07/18 04:27 Additional Labs: Accuchecks 06/07/18 06/06/18 05:54 20:22 POC Glucose 240 H 93 Phys Exam - Physical Examination HEENT: PERRLA, moist MMs Neck: no JVD, supple Respiratory: no wheezing, no rales Cardiovascular: RRR, no significant murmur Gastrointestinal: soft, non-tender, positive bowel sounds Musculoskeletal: no edema, pulses present Neurological: non-focal, moves all 4 limbs Psychiatric: normal affect, A&O x 3 Dx/Plan (1) STEMI (ST elevation myocardial infarction) Status: Acute Comment: s/p stent to LAD, RCA and circumflex (2) CAD (coronary artery disease) Code(s): I25.10 - ATHSCL HEART DISEASE OF [place] CORONARY ARTERY W/O ANG PCTRS Status: Acute Qualifiers: Coronary Disease-Associated Artery/Lesion type: [place] artery [place] vs. transplanted heart: [place] heart (3) Diabetes mellitus Code(s): E11.9 - TYPE 2 DIABETES MELLITUS WITHOUT COMPLICATIONS Status: Chronic Qualifiers: Diabetes mellitus type: type 2 Diabetes mellitus bed bug exterminator insulin use: without halfway use Diabetes mellitus complication status: with unspecified complications Qualified Code(s): E11.8 - Type 2 diabetes mellitus with unspecified complications (4) Dyslipidemia Code(s): E78.5 - HYPERLIPIDEMIA, UNSPECIFIED Status: Acute (5) Tobacco abuse Code(s): Z72.0 - TOBACCO USE Status: Chronic - Plan hemostable -: is cleared by cardio for dc -: has brilinta coupon, glipizide 5mg daily -: dc pt home -: to check fingerstick glucose daily and record x 10 days to f/u with pcp * .
--- NOTE | 2018-06-07 20:23 | DIS ---
DATE OF ADMISSION: 06/03/2018 DATE OF DISCHARGE: 06/07/2018 DISCHARGE DISPOSITION: To home. PRIMARY DISCHARGE DIAGNOSES: 1. ST elevation myocardial infarction, status post stenting done to LAD on the . Subsequent claudine nt placed to RCA and circumflex on the . 2. Coronary artery disease. 3. Diabetes mellitus type 2. 4. Noncompliant being uncontrolled. 5. Dyslipidemia. 6. Tobacco abuse. PROCEDURES DONE DURING HOSPITALIZATION: The patient has had coronary angiogram done on the day of ad mission with successful placement of the drug-eluting stent to proximal LAD. He had 3-vessel coronar y artery disease with RCA 95%, left circumflex 95%, diagonal 60% to 70%, LV EF was 40% to 45%. The p atient had a repeat angiogram done on the with successful PCI and drug-eluting stent placed to m id RCA and mid circumflex coronary artery. H&H 13 and 39, platelet count 207. Had an initial tropon in of 14 with peaking up to 142. CK-MB was 84.8. Hemoglobin A1c 12.5. Initial serum glucose was 35 9. BNP was 100. DISCHARGE MEDICATIONS: Aspirin 81 mg p.o. daily, Brilinta 90 mg twice daily, lisinopril 2.5 mg daily , glipizide 5 mg daily, Coreg 3.125 mg twice daily, Lipitor 40 mg p.o. at bedtime, and clonazepam 0.2 5 mg p.o. at bedtime. ALLERGIES: No known drug allergies. INPATIENT CONSULTS: Dr. Saenz for Cardiology and Dr. Roberts for critical care. DISCHARGE PLAN: Patient to follow up with Dr. Saenz in 4 weeks and primary care physician in 1 week. BRIEF COURSE DURING HOSPITALIZATION: Patient initially got admitted on 06/03/2018 [facility] for complaints of chest pain. He was found to have had STEMI of the anterior wall. The patient was taken to cardiac catheterization and has had stent placed to mid section of L AD. He was also found to have had lesion in the RCA and circumflex as well. He was admitted to ICU, stabilized, and a repeat angiogram was done on the with placement of stents to RCA and circumfl ex. The patient is ambulating and eating well. He was initially on Lantus for his uncontrolled diab etes here due to noncompliance. He has been switched over to glipizide at the time of discharge. He was given coupons for Brilinta. Patient was counseled with regards to medication compliance and tary compliance. Prior to discharge, he is eating and ambulating well.
--- NOTE | 2018-06-08 16:54 | EKG ---
Test Reason : STAT Blood Pressure : / mmHG Vent. Rate : 065 BPM Atrial Rate : 065 BPM P-R Int : 150 ms QRS Dur : 090 ms QT Int : 468 ms P-R-T Axes : 053 -70 065 degrees QTc Int : 486 ms Normal sinus rhythm Possible Left atrial enlargement Left axis deviation Anteroseptal infarct , age undetermined T wave abnormality, consider lateral ischemia Abnormal ECG No previous ECGs available Confirmed by NAA CADE ([id number]) on 06/08/2018 4:53:48 PM Referred By: Confirmed By:NAA CADE
--- NOTE | 2018-06-08 17:15 | EKG ---
Test Reason : Blood Pressure : / mmHG Vent. Rate : 068 BPM Atrial Rate : 068 BPM P-R Int : 138 ms QRS Dur : 090 ms QT Int : 454 ms P-R-T Axes : 053 -71 083 degrees QTc Int : 482 ms Normal sinus rhythm Left axis deviation Anteroseptal infarct , possibly acute T wave abnormality, consider lateral ischemia * ACUTE [place] * Abnormal ECG No previous ECGs available Confirmed by NAA CADE ([id number]) on 06/08/2018 5:15:22 PM Referred By: PK Confirmed By:NAA CADE
--- NOTE | 2018-06-09 20:47 | EKG ---
Test Reason : Blood Pressure : / mmHG Vent. Rate : 069 BPM Atrial Rate : 069 BPM P-R Int : 156 ms QRS Dur : 090 ms QT Int : 458 ms P-R-T Axes : 069 125 077 degrees QTc Int : 490 ms Normal sinus rhythm Anterolateral infarct (cited on or before 03-JUN-2018) ACUTE ME / STEMI Abnormal ECG When compared with ECG of 04-JUN-2018 09:41, Questionable change in QRS axis Serial changes of evolving Anterior infarct Present Serial changes of evolving Anterolateral infarct Present Confirmed by NAA CADE (2) on 06/09/2018 8:47:19 PM Referred By: Confirmed By:NAA CADE
--- NOTE | 2018-06-09 20:49 | EKG ---
Test Reason : TIMED Blood Pressure : / mmHG Vent. Rate : 078 BPM Atrial Rate : 078 BPM P-R Int : 156 ms QRS Dur : 092 ms QT Int : 450 ms P-R-T Axes : 057 -77 092 degrees QTc Int : 513 ms Normal sinus rhythm Left axis deviation Anteroseptal infarct (cited on or before 03-JUN-2018) T wave abnormality, consider lateral ischemia Prolonged QT Abnormal ECG When compared with ECG of 06-JUN-2018 15:14, (Unconfirmed) Questionable change in QRS axis Serial changes of evolving Anteroseptal infarct Present Confirmed by NAA CADE (2) on 06/09/2018 8:49:19 PM Referred By: PK Confirmed By:NAA CADE
== END 2018-06-07 15:12 | disposition home or self-care (01) | DRG 247 ==
LOC: ERS 14:36 → SDC 15:58 → CCU 17:32 → IMCU/EMU 06-04 14:18 → 2NO 06-06 22:36
PROVIDERS: ADMIT Internal Medicine Cardiovascular Disease; ATTEND Internal Medicine Cardiovascular Disease
PROC: 027034Z Dilation of Coronary Artery, One Artery with Drug-eluting Intraluminal Device, Percutaneous Approach (ICD-10-PCS; 2018-06-03)
PROC: 4A023N7 Measurement of Cardiac Sampling and Pressure, Left Heart, Percutaneous Approach (ICD-10-PCS; 2018-06-03)
PROC: B2111ZZ Fluoroscopy of Multiple Coronary Arteries using Low Osmolar Contrast (ICD-10-PCS; 2018-06-03)
PROC: B2151ZZ Fluoroscopy of Left Heart using Low Osmolar Contrast (ICD-10-PCS; 2018-06-03)
PROC: 027135Z Dilation of Coronary Artery, Two Arteries with Two Drug-eluting Intraluminal Devices, Percutaneous Approach (ICD-10-PCS; principal; 2018-06-06)
PROC: 4A023N7 Measurement of Cardiac Sampling and Pressure, Left Heart, Percutaneous Approach (ICD-10-PCS; 2018-06-06)
PROC: B2111ZZ Fluoroscopy of Multiple Coronary Arteries using Low Osmolar Contrast (ICD-10-PCS; 2018-06-06)
PROC: B2151ZZ Fluoroscopy of Left Heart using Low Osmolar Contrast (ICD-10-PCS; 2018-06-06)
DX: I21.09 ST elevation (STEMI) myocardial infarction involving other coronary artery of anterior wall (principal); Z85.89 Personal history of malignant neoplasm of other organs and systems; Z92.3 Personal history of irradiation; F17.210 Nicotine dependence, cigarettes, uncomplicated; E11.65 Type 2 diabetes mellitus with hyperglycemia; I25.10 Atherosclerotic heart disease of native coronary artery without angina pectoris; Z91.14 Patient's other noncompliance with medication regimen; F41.9 Anxiety disorder, unspecified; E78.2 Mixed hyperlipidemia
CPT/HCPCS: 36415; 36416; 71045; 80048; 80053; 82553; 83036; 83690; 83880; 84484; 85025; 85347; 85610; 85730; 86850; 86900; 86901; 90471; 90670; 92928; 92929; 92941; 93005; 93010; 93458; 93798; 96374; 96375; A4216; C1725; C1769; C1874; C1887; C9600; C9601; C9606; G0009; J0153; J0461; J1265; J1642; J1644; J1815; J2001; J2270

== ENCOUNTER 2019-05-26 06:42 | Outpatient (CLI) | payer MEDICARE, MEDICAID ==
--- NOTE | 2019-05-26 07:45 | ULT ---
US Abdominal History: Generalized abdominal pain Comparison: None. Findings: Real-time grayscale and color evaluation of the abdomen was performed. Visualized portion of the pancreas, aorta, and IVC are unremarkable. Diffuse increased hepatic echote xture. Liver measures 13.5 cm in length. Portal vein is patent. Gallbladder is normal. No pericholecystic fluid. Common bile duct measures 4 mm, normal. Right kidney measures 9.7 x 5.4 x 4.9 cm and the left kidney measures 9.7 x 7.8 x 5.6 cm. No renal ma ss, hydronephrosis, or abnormal calcifications. Spleen measures 11.6 cm in length. Impression: 1. Diffuse hepatic steatosis. 2. Splenic size upper limits of normal.
== END 2019-05-26 06:43 | disposition home or self-care (01) ==
LOC: BICULT 06:42
PROVIDERS: ATTEND Nurse Practitioner Family
DX: R10.84 Generalized abdominal pain (principal); K76.0 Fatty (change of) liver, not elsewhere classified
CPT/HCPCS: 76700

== ENCOUNTER 2023-05-15 10:09 | Emergency (ER) | payer MEDICARE, MEDICAID ==
[2023-05-15 11:07] LABS: #Eosinphils 0.2 thou/uL (0.0-0.7); #Monocytes 0.5 thou/uL (0.11-0.59); #Neutrophils 3.3 thou/uL (1.40-6.50); %Basophils 0.4 % (0.0-1.0); %Eosinophils 3.6 % (0.0-10.0); %Lymphocytes 23.7 % (21.0-51.0); %Monocytes 9.3 % (0.0-10.0); %Neutrophils 62.8 % (42.0-75.0); Hematocrit 36.2 % (42.0-52.0); Hemoglobin 12.3 g/dL (14.0-18.0); Mean Corpuscular Hemoglobin 30.6 pg (27.0-31.0); Mean Platelet Volume 10.6 fL (7.4-10.4); Platelet Count 145 10x3/uL (130-400); RBC Distribution Width 13.2 % (11.5-14.5); Red Blood Cell (RBC) Count 4.02 mill/uL (4.70-6.10); White Blood Cell (WBC) Count 5.3 10x3/uL (4.8-10.8)
[2023-05-15 11:30] LABS: ALT (SGPT) Less than 7 U/L (8-55); AST (SGOT) 9 U/L (5-34); Albumin 3.4 g/dL (3.4-4.8); Alkaline Phosphatase 95 U/L (40-110); Anion Gap 13 mmol/L (10-20); BUN (Urea Nitrogen) 10 mg/dL (8.4-25.7); Bilirubin, Total 0.3 mg/dL (0.2-1.2); CK (CPK) 55 U/L (30-200); Calc. Creatinine Clearance 0 mL/min (70-130); Calcium 8.5 mg/dL (7.8-10.44); Carbon Dioxide 24 mmol/L (23-31); Chloride 104 mmol/L (98-107); Estimated GFR 96; Globulin 2.3 g/dL (2.4-3.5); Glucose 195 mg/dL (83-110); Magnesium 1.5 mg/dL (1.6-2.6); Potassium 3.8 mmol/L (3.5-5.1); Protein, Total 5.7 g/dL (5.8-8.1); Sodium 137 mmol/L (136-145)
[2023-05-15 12:34] LABS: Bacteria/HPF None Seen HPF (None Seen); Bilirubin Negative (Negative); Blood, Urine Negative (Negative); CAUTI Indications for Culture Alt mental st,lethar; Clarity Clear (Clear); Glucose, Urine (Dipstick) Greater than 1000 mg/dL (Negative); Ketone, Urine Negative (Negative); Leukocyte Negative Leu/uL (Negative); Nitrite Negative (Negative); Protein, Urine (Dipstick) Negative (Neg-Trace); RBC/HPF 0-3 HPF (0-3); Specific Gravity, Urine 1.035 (1.002-1.036); Squamous Epithelial None Seen HPF (0-3); Urobilinogen Normal mg/dL (Less than 2); WBC/HPF 0-3 HPF (0-3); pH, Urine 5.5 (5.0-9.0)
[2023-05-15 12:37] LABS: Urine Culture Reflex No No
[2023-05-15] MEDS ORDERED: Magnesium Oxide 400 MG TAB PO SCH (13:45)
== END 2023-05-15 14:10 | disposition home or self-care (01) ==
LOC: ERS 10:09
DX: I95.1 Orthostatic hypotension (principal); R00.1 Bradycardia, unspecified; I10 Essential (primary) hypertension; E78.00 Pure hypercholesterolemia, unspecified; Z87.891 Personal history of nicotine dependence
CPT/HCPCS: 36415; 80053; 81001; 82550; 83735; 85025; 93005; 94760; 96361; 96365